=== PATIENT | female | born 2000 | race Caucasian/White ===

== ENCOUNTER → 2023-06-08 13:23 | Outpatient (REF) | payer OTHER, SELFPAY | LOC: PNTC 13:23 | PROVIDERS: ATTENDING PHYSICIAN Obstetrics & Gynecology | DX: O35.5XX0 Maternal care for (suspected) damage to fetus by drugs, not applicable or unspecified (principal) | CPT/HCPCS: 76805 ==

== ENCOUNTER → 2023-08-31 12:03 | Outpatient (REF) | payer OTHER, SELFPAY | LOC: PNTC 12:03 | PROVIDERS: ATTENDING PHYSICIAN Obstetrics & Gynecology | DX: O35.5XX0 Maternal care for (suspected) damage to fetus by drugs, not applicable or unspecified (principal) | CPT/HCPCS: 76816 ==

== ENCOUNTER 2023-10-21 10:32 | Observation (INO) | payer OTHER, SELFPAY ==
[2023-10-21 10:42] VITALS: BP 126/83; BMI 29.2
[2023-10-21 11:12] LABS: % Basophils 0.3 % (0-2); % Eosinophils 0.9 % (0-6); % Immature Granulocytes 0.4 % (0-0.5); % Lymphocytes 18.4 % (20.5-51.1); % Monocytes 4.7 % (1.7-9.3); % Neutrophils 75.3 % (42.2-75.2); Absolute Eosinophils 0.1 10^3/uL (0-0.7); Absolute Immature Granulocytes 0.1 10^3/uL (0-0.05); Absolute Lymphocytes 2.2 10^3/uL (1.2-3.4); Absolute Monocytes 0.6 10^3/uL (0.1-0.6); Absolute Neutrophils 8.9 10^3/uL (1.4-6.5); Hematocrit 32.2 % (37.0-47.0); Hemoglobin 10.9 g/dL (12.0-16.0); Mean Corp Hgb Conc. 33.9 g/dL (33.0-37.0); Mean Corpuscular Hgb 25.9 pg (27.0-31.0); Mean Corpuscular Volume 76.5 fL (81.0-99.0); Mean Platelet Volume 12.1 fL (7.4-10.4); Nucleated Red Blood Cells % 0 %; Platelet Count 184 10^3/uL (130-400); Red Blood Cell Count 4.21 10^6/uL (4.20-5.40); Red Cell Dist. Width 14.9 % (11.5-14.5); White Blood Cell Count 11.9 10^3/uL (4.8-10.8)
== END 2023-10-21 11:30 | disposition home or self-care (01) ==
LOC: PNTC-IN 10:32
PROVIDERS: ADMITTING PHYSICIAN Obstetrics & Gynecology
DX: O46.93 Antepartum hemorrhage, unspecified, third trimester (principal); Z3A.39 39 weeks gestation of pregnancy
CPT/HCPCS: 59025; 76815; 85025; G0378

== ENCOUNTER → 2023-10-27 15:53 | Outpatient (REF) | payer OTHER, SELFPAY | LOC: PNTC 15:53 | PROVIDERS: ATTENDING PHYSICIAN Obstetrics & Gynecology | DX: N93.9 Abnormal uterine and vaginal bleeding, unspecified (principal); O48.0 Post-term pregnancy | CPT/HCPCS: 59025; 76815 ==

== ENCOUNTER 2023-11-02 19:18 | Inpatient (IN) | payer OTHER, SELFPAY ==
[2023-11-02 19:25] VITALS: BMI 29.2
[2023-11-02 20:14] VITALS: BP 128/84
[2023-11-02 21:22] LABS: % Basophils 0.2 % (0-2); % Eosinophils 0.8 % (0-6); % Immature Granulocytes 0.3 % (0-0.5); % Monocytes 5.9 % (1.7-9.3); % Neutrophils 73.8 % (42.2-75.2); Absolute Eosinophils 0.1 10^3/uL (0-0.7); Absolute Lymphocytes 2.3 10^3/uL (1.2-3.4); Absolute Monocytes 0.7 10^3/uL (0.1-0.6); Absolute Neutrophils 8.9 10^3/uL (1.4-6.5); Hematocrit 29.1 % (37.0-47.0); Hemoglobin 9.9 g/dL (12.0-16.0); Mean Corpuscular Hgb 25.1 pg (27.0-31.0); Mean Corpuscular Volume 73.7 fL (81.0-99.0); Mean Platelet Volume 11.9 fL (7.4-10.4); Nucleated Red Blood Cells % 0 %; Platelet Count 186 10^3/uL (130-400); Red Blood Cell Count 3.95 10^6/uL (4.20-5.40); Red Cell Dist. Width 15.7 % (11.5-14.5); White Blood Cell Count 12.1 10^3/uL (4.8-10.8)
[2023-11-02] MEDS: LUVOX 50 MG PO (22:10)
[2023-11-02] MEDS: CYTOTEC 50 MICROGRAM VAG (22:10)
[2023-11-02] MEDS: ELAVIL 10 MG PO (22:10)
[2023-11-02 23:47] LABS: Amphetamines Negative (Negative); Barbiturates Negative (Negative); Benzodiazepines Negative (Negative); Buprenorphine Negative (Negative); Cocaine Negative (Negative); Marijuana Negative (Negative); Methadone Negative (Negative); Methamphetamines Negative (Negative); Opiates Negative (Negative); Phencyclidine Negative (Negative); Tricyclic Antidepressants Negative (Negative)
[2023-11-03] MEDS: CYTOTEC 50 MICROGRAM PO (02:14)
[2023-11-03] MEDS: MORPHINE SULFATE 2 MG IV ×3 (02:57→09:36)
--- NOTE | 2023-11-03 03:09 | DOWNTIME ---
There was a [facility] Downtime on 11/03/2023 from 0100 to 11/03/2023 at 0252. Downtime documentation of patient's care, including medication administrations, has been reconciled in the electronic record per guidelines. Refer to the
patient's paper chart under the miscellaneous tab to see printed paper medication records and downtime forms.
[2023-11-03] MEDS: BRETHINE 250 MCG SC (05:21)
[2023-11-03] MEDS: CYTOTEC PO ×2 (05:21→11:23)
[2023-11-03] MEDS: LINZESS 145 MCG PO (05:56)
[2023-11-03] MEDS: LR 1000 IV ×2 (05:56→10:57)
[2023-11-03] MEDS: PRENATAL PLUS 1 TABLET PO (09:36)
[2023-11-03] MEDS: FENTANYL/BUPIVACAINE 100 EPIDURAL ×2 (10:19→17:40)
[2023-11-03] MEDS: SUBLIMAZE 100 MCG EPIDURAL (10:19)
[2023-11-03] MEDS: ZOFRAN 4 MG IV (18:51)
[2023-11-03] MEDS: PITOCIN 30 UNITS/NSS 500 ML IV (23:18)
[2023-11-04] MEDS: CYTOTEC PO ×3 (00:07)
[2023-11-04] MEDS: LUVOX 50 MG PO ×2 (00:46→22:30)
[2023-11-04] MEDS: ELAVIL 10 MG PO ×2 (00:46→22:29)
[2023-11-04] MEDS: MOTRIN 600 MG PO ×4 (01:19→22:29)
[2023-11-04] MEDS: TYLENOL 650 MG PO ×3 (02:28→22:29)
[2023-11-04 06:41] LABS: Hematocrit 27.6 % (37.0-47.0); Hemoglobin 9.4 g/dL (12.0-16.0)
[2023-11-04] MEDS: LINZESS 145 MCG PO (06:49)
[2023-11-04] MEDS: PRENATAL PLUS 1 TABLET PO (09:11)
[2023-11-04] MEDS: SENOKOT-S 1 TABLET PO (09:11)
[2023-11-04] MEDS: FEOSOL 325 MG PO (14:13)
--- NOTE | 2023-11-04 15:57 | CM ---
Met with new mom Malena and her mother at bedside
Mom has not yet named her son - possibly Munir
Father of baby is not involved
Mom reports she lives at listed address with her father, step-mom, step-brother, and step-sister - family supportive
Her mother lives nearby and is supportive
Mom reports she has supplies for her son including a crib and car seat
Plans to breast feed - pump ordered from [employer] - to be delivered to moms home. Confirmed with Trinidad at DME
Esperanza Marinelli (Tr)
[employer] - plans to follow [facility]
Mom reports hx of anxiety disorder. Reports she is current with [facility]. Hs hx with [facility] in past as outpatient. Plans to continue with current outpatient provider
Discussed the WIC program and [facility]
Given resources to both, questions answered
CM will be available to assist family with d/c needs
[2023-11-05] MEDS: TYLENOL 650 MG PO ×2 (02:53→09:46)
[2023-11-05] MEDS: MOTRIN 600 MG PO (05:33)
[2023-11-05] MEDS: SENOKOT-S 1 TABLET PO (05:56)
[2023-11-05] MEDS: LINZESS 145 MCG PO (05:57)
[2023-11-05] MEDS: FEOSOL 325 MG PO (09:47)
[2023-11-05] MEDS: PRENATAL PLUS 1 TABLET PO (09:49)
[2023-11-05 11:12] LABS: Syphilis/T. pallidum Ab Reflex Negative (Negative)
== END 2023-11-05 15:01 | disposition home or self-care (01) | DRG 807 ==
LOC: LDRP 19:18
PROVIDERS: Obstetrics & Gynecology; ADMITTING PHYSICIAN Obstetrics & Gynecology; FAMILY PHYSICIAN Family Medicine
PROC: 3E0P7VZ Introduction of Hormone into Female Reproductive, Via Natural or Artificial Opening (ICD-10-PCS; 2023-11-02)
PROC: 10E0XZZ Delivery of Products of Conception, External Approach (ICD-10-PCS; 2023-11-04)
PROC: 0KQM0ZZ Repair Perineum Muscle, Open Approach (ICD-10-PCS; 2023-11-04)
PROC: 0UQMXZZ Repair Vulva, External Approach (ICD-10-PCS; 2023-11-04)
DX: O48.0 Post-term pregnancy (principal); Z37.0 Single live birth; Z3A.41 41 weeks gestation of pregnancy; O99.02 Anemia complicating childbirth; O70.1 Second degree perineal laceration during delivery
CPT/HCPCS: 36415; 80306; 83789; 85014; 85018; 85025; 86780; 86850; 86900; 86901

== ENCOUNTER → 2024-02-22 13:49 | Outpatient (REF) | payer OTHER, SELFPAY | LOC: WDC 13:49 | PROVIDERS: ATTENDING PHYSICIAN Student in an Organized Health Care Education/Training Program | DX: N63.10 Unspecified lump in the right breast, unspecified quadrant (principal); N63.11 Unspecified lump in the right breast, upper outer quadrant | CPT/HCPCS: 76642 ==